=== PATIENT | female | born 1960 ===

== ENCOUNTER 2019-10-26 06:46 | Day surgery (SDC) | payer OTHER ==
[~2019-10-26 06:46] MED LIST: ATORVASTATIN CA10 MG PO; CENTRUM SILVER1 EAC2 PO; CLONAZEPAM1 M1 PO; D-BIOTIN1 GM; DOXORUBICIN IV; DULOXETINE HCL40 MG PO; FENOFIBRATE150 MG PO; FISH OIL 1,0001 EAC1 PO; NORVASC2.5 M1 PO; PREVACID30 MG PO; SYNTHROID88 MCG PO; ZIAC 10/6.25 MG1 TAB PO
[2019-10-26] MEDS ORDERED: PERCOCET 5-3251 EACH PO (12:21)
== END 2019-10-26 14:40 | disposition home or self-care (01) ==
LOC: CIR.AMB 06:46 → ADM 10:30 → CIR.AMB 14:40
DX: C73 Malignant neoplasm of thyroid gland (principal)